=== PATIENT | female | born 1985 | race Caucasian/White ===

== ENCOUNTER 2017-02-15 08:58 | Emergency (ER) | payer MEDICAID ==
--- NOTE | 2017-02-15 09:55 | ED Physician Documentation ---
PD HPI HEADACHE - Stated complaint Stated Complaint: WAGONER/DIZZY - Chief complaint Chief Complaint: General - History obtained from History obtained from: Patient, Family - History of Present Illness Timing - onset: How many months ago (08 27/2) Timing - onset during: Rest Timing - duration: Hours Timing - details: Gradual onset, Now resolved, Waxing and waning Location: Right Quality: Throbbing Associated symptoms: Nausea. No: Fever, Stiff neck, Vomiting, Weakness, Numbness, Syncope, Seizure, Eye pain, Vision changes Improved by: Rest Contributing factors: No: Anticoagulated Similar symptoms before: Has not had sx before Recently seen: Other (The patient has had her teeth examined about a month ago with x-rays all are OK) - Additional information Additional information: 32 y/o female with a history of TMJ has developed a headache in the right temporal region that has been on and off for the past 1 1/2 months. She does not feel that she is clenching or grinding her teeth and she did have a tooth removed on the other side to resolve her TMJ. This morning she became concerned when she developed dizziness and light headedness while lying down with her eyes closed. Review of Systems Constitutional: denies: Fever, Chills, Myalgias, Fatigue Eyes: denies: Loss of vision, Decreased vision Ears: denies: Ear pain Nose: denies: Rhinorrhea / runny nose, Congestion Throat: denies: Sore throat Cardiac: denies: Chest pain / pressure, Palpitations Respiratory: denies: Dyspnea, Cough GI: reports: Nausea. denies: Abdominal Pain, Vomiting : denies: Dysuria, Frequency Skin: denies: Rash Musculoskeletal: denies: Neck pain, Back pain, Extremity pain Neurologic: reports: Headache, Other (dizziness lightheadedness). 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 - Present Medications Home Medications: Ambulatory Orders Medication Instructions Recorded Confirmed Cyclobenzaprine [Flexeril] 10 mg PO TID PRN #20 tablet 02/15/17 Etonogestrel/Ethinyl Estradiol 1 each VG DAILY 02/15/17 02/15/17 [Nuvaring Vaginal Ring] Meclizine HCl 25 mg PO Q6HR PRN #20 tab.chew 02/15/17 - Allergies Allergies/Adverse Reactions: Allergies Allergy/AdvReac Type Severity Reaction Status Date / Time No Known Drug Allergies Allergy Verified 02/15/17 09:09 - Social History Does the pt smoke?: No Smoking Status: Never smoker Does the pt drink ETOH?: No Does the pt have substance abuse?: Yes Substance Use and Type: Marijuana - Immunizations Immunizations are current?: Yes PD ED PE NORMAL - Vitals Vital signs reviewed: Yes (hypertension ) - General General: No acute distress, Well developed/nourished - HEENT HEENT: Atraumatic, PERRL, EOMI, Ears normal, Moist mucous membranes, Pharynx benign, Dentition benign, Other (There is a filling to the right lower molar and the tooth is not tender and there is no gum swelling. There are 3 beats of nystagmus to lateral view bilaterally ) - Neck Neck: Supple, no meningeal sign, No bony TTP - Cardiac Cardiac: RRR, No murmur - Respiratory Respiratory: No respiratory distress, Clear bilaterally - Abdomen Abdomen: Soft, Non tender - Back Back: No CVA TTP, No spinal TTP - Derm Derm: Normal color, Warm and dry, No rash - Extremities Extremities: No deformity, No edema - Neuro Neuro: backend java developer 2-12 intact, No motor deficit, No sensory deficit, Normal speech - Psych Psych: Normal mood, Normal affect Results - Vitals Vitals: Vital Signs - 24 hr 02/15/17 09:01 Temperature 36.7 C Heart Rate 87 Respiratory 16 Rate Blood Pressure 125/82 H O2 Saturation 100 Oxygen O2 Source Room air - Labs Labs: Laboratory Tests 02/15/17 02/15/17 10:52 10:52 WBC 6.1 RBC 4.66 Hgb 14.1 Hct 40.9 MCV 87.8 MCH 30.3 MCHC 34.5 RDW 12.5 Plt Count 175 MPV 7.7 L Neut # 4.8 Lymph # 1.0 L [place] # 0.2 Eos # 0.0 Baso # 0.0 Absolute Nucleated RBC 0.00 Nucleated RBCs 0.0 Sodium 139 Potassium 3.5 Chloride 105 Carbon Dioxide 24 Anion Gap 10.0 BUN 9 Creatinine 0.9 Estimated GFR (MDRD) 73 L Glucose 105 H Calcium 8.9 Total Bilirubin 0.3 AST 17 ALT 16 Alkaline Phosphatase 36 L Total Protein 7.4 Albumin 4.3 Globulin 3.1 Albumin/Globulin Ratio 1.4 Lipase 32 Procedures - IVC sono (time) 0915 Bedside IVC sono: IVC measures (cm) (1.97), Euvolemia PD MEDICAL DECISION MAKING - ED course Complexity details: reviewed old records, reviewed results, re-evaluated patient , considered differential, d/w patient, d/w family ED course: 32 y/o female with a daily intermittent headache has developed acute dizziness and nausea with anxiety this morning. A CT of the head is without findings as is physical examination. She does have a lot of stress and has a prior history of grinding her teeth without knowing it. She has some nystagmus bilaterally this morning and I suspect this is the reason she ended up here this morning as she has dramatic dizziness that is now mostly better. She has anxiety and is reassured by CT and blood work. Departure - Departure Disposition: 01 Home, Self Care Clinical Impression: Tension headache Labyrinthitis, acute Qualifiers: Laterality: bilateral Qualified Code(s): H83.03 - Labyrinthitis, bilateral Condition: Stable Instructions: ED Labyrinthitis, ED Headache Tension Follow-Up: Kimberly Lynne MD [Primary Care Provider] - Prescriptions: Meclizine HCl 25 mg PO Q6HR PRN #20 tab.chew PRN Reason: Dizziness Cyclobenzaprine [Flexeril] 10 mg PO TID PRN #20 tablet PRN Reason: Spasms
--- NOTE | 2017-02-15 10:11 | CT Preliminary Report ---
Exam: CT Head W/O IMPRESSION: Normal head CT. [facility] SITE ID: [id number]
--- NOTE | 2017-02-15 10:14 | CT Report ---
EXAM: CT HEAD EXAM DATE: 02/15/2017 09:59 AM. CLINICAL HISTORY: Report of 6 weeks on right side headache, no known injury. COMPARISON: None. TECHNIQUE: Multiaxial CT images were obtained from the foramen magnum to the vertex. IV contrast: Non e. Reformats: Coronal. In accordance with CT protocol optimization, one or more of the following dose reduction techniques w ere utilized for this exam: automated exposure control, adjustment of mA and/or KV based on patient s ize, or use of iterative reconstructive technique. FINDINGS: Parenchyma: No intraparenchymal hemorrhage. No evidence of mass, midline shift, or CT findings of inf arction. Bradshaw-white differentiation is distinct. Extraaxial Spaces: Normal for age. No subdural or epidural collections identified. Ventricles: Normal in size and position. Sinuses: Imaged paranasal sinuses, orbits, and mastoids show no significant abnormality. Bones: No evidence of fracture or calvarial defect. Other: None. IMPRESSION: Normal head CT. [facility] Referring Provider Line: [phone] SITE ID: [id number]
[2017-02-15 10:56] LABS: BASOPHILS % (AUTO) 0.4 %; EOSINOPHILS % (AUTO) 0.3 %; HCT - HEMATOCRIT 40.9 % (37.0-47.0); HGB - HEMOGLOBIN 14.1 g/dL (12.0-16.0); LYMPHOCYTES % (AUTO) 15.7 %; MEAN CORPUSCULAR HEMOGLOBIN 30.3 pg (27.0-31.0); MEAN CORPUSCULAR HGB CONC 34.5 g/dL (32.0-36.0); MEAN CORPUSCULAR VOLUME 87.8 fL (81.0-99.0); MEAN PLATELET VOLUME 7.7 fL (7.9-10.8); MONOCYTES # (AUTO) 0.2 10^3/uL (0.0-1.0); MONOCYTES % (AUTO) 4.1 %; NEUTROPHILS # (AUTO) 4.8 10^3/uL (1.5-6.6); NEUTROPHILS % (AUTO) 79.5 %; RED BLOOD COUNT 4.66 10^6/uL (4.20-5.40); RED CELL DISTRIBUTION WIDTH 12.5 % (12.0-15.0); UNCORRECTED WHITE BLOOD COUNT 6.1 x10^3/uL; WHITE BLOOD COUNT 6.1 x10^3/uL (4.8-10.8)
[2017-02-15] MEDS ORDERED: ACETAMINOPHEN 325 MG TABLET PO STA (11:08)
[2017-02-15 11:09] LABS: ALBUMIN/GLOBULIN RATIO 1.4 (1.0-2.2); BILIRUBIN,TOTAL 0.3 mg/dL (0.2-1.0); CALCIUM 8.9 mg/dL (8.5-10.3); CREATININE 0.9 mg/dL (0.4-1.0); POTASSIUM 3.5 mmol/L (3.5-5.0); TOTAL PROTEIN 7.4 g/dL (6.7-8.2)
[2017-02-15] MEDS ORDERED: ACETAMINOPHEN 325 MG TABLET PO ONE (11:12)
[2017-02-15 11:37] VITALS: BP 120/79
== END 2017-02-15 11:45 | disposition home or self-care (01) ==
LOC: ED 08:58
DX: G44.209 Tension-type headache, unspecified, not intractable (principal); H83.03 Labyrinthitis, bilateral
CPT/HCPCS: 36415; 70450; 80053; 83690; 85025; 99283; 99284; A9270

== ENCOUNTER 2018-07-28 09:09 | Emergency (ER) | payer MEDICAID ==
[2018-07-28 09:25] VITALS: BP 130/84
[2018-07-28] MEDS ORDERED: NAPROXEN 250 MG TABLET PO STA (09:39)
[2018-07-28] MEDS ORDERED: AMOX/CLAV 875 MG/125 MG TABLET PO STA (09:39)
--- NOTE | 2018-07-28 09:41 | ED Physician Documentation ---
History of Present Illness - Stated complaint Stated Complaint: SORE THROAT - Chief complaint Chief Complaint: General - Additonal information Additional information: 33-year-old female presents the emergency department with sore throat and pain with swallowing for the past several days. No reports of fever. The patient denies any other significant symptoms. Symptoms are described as moderate. No triggering factors. No relief with [id number]-[id number] therapy. 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 - Present Medications Home Medications: Ambulatory Orders Medication Instructions Recorded Confirmed Acetaminophen [Tylenol Extra 07/28/18 Strength] Amox/Clav 875/125 [Augmentin] 1 each PO Q12H #20 tablet 07/28/18 - Allergies Allergies/Adverse Reactions: Allergies Allergy/AdvReac Type Severity Reaction Status Date / Time adhesive tape AdvReac Rash Verified 07/28/18 09:26 - Social History Does the pt smoke?: No Smoking Status: Never smoker Does the pt drink ETOH?: No Does the pt have substance abuse?: Yes - Immunizations Immunizations are current?: Yes PD ED PE NORMAL - General General: Alert and oriented X 3, No acute distress - Cardiac Cardiac: RRR, Strong equal pulses - Respiratory Respiratory: No respiratory distress, Clear bilaterally - Extremities Extremities: No deformity - Neuro Neuro: Alert and oriented X 3, Normal speech - Psych Psych: Normal mood PD ED PE EXPANDED - HEENT HEENT: PERRL, EOMI, Ears normal, Moist mucous membranes, Pharyngeal erythema, Swollen tonsils, Tonsillar exudate, Dentition normal. No: R TM red, R TM dull, R TM bulging, R TM retracted, R TM loss of landmarks, L TM red, L TM dull, L TM bulging, L TM retracted, L TM loss of landmarks, Right frontal sinus TTP, Left frontal sinus TTP, Right maxillary sinus TTP, Left maxillary sinus TTP, Soft palate petecchiae, CHIEF MEDIA OFFICER, Dental abscess Results - Vitals Vitals: Vital Signs - 24 hr 07/28/18 09:22 Temperature 36.8 C Heart Rate 93 Respiratory 16 Rate Blood Pressure 130/84 H O2 Saturation 100 Oxygen O2 Source Room air - Labs Labs: Laboratory Tests 07/28/18 09:32 Group A Strep Rapid POSITIVE H PD MEDICAL DECISION MAKING - ED course ED course: The patient has strep pharyngitis and appears appropriate for outpatient management with oral antibiotics. I discussed the findings and plan with the patient she understands and agrees. I discussed warning signs and recommended returning to the emergency department for worsening or any concerns. Departure - Departure Disposition: 01 Home, Self Care Clinical Impression: Strep pharyngitis Condition: Good Instructions: ED Strep Pharyngitis Conf Follow-Up: Josee Henderson ARNP [Primary Care Provider] - Within 1 week Prescriptions: Amox/Clav 875/125 [Augmentin] 1 each PO Q12H #20 tablet Comments: Please return to the emergency department for worsening symptoms or any concerns.
== END 2018-07-28 09:49 | disposition home or self-care (01) ==
LOC: ED 09:09
DX: J02.0 Streptococcal pharyngitis (principal)
CPT/HCPCS: 87430; 99283; A9270

== ENCOUNTER 2018-09-29 12:58 | Outpatient (CLI) | payer MEDICAID ==
--- NOTE | 2018-09-30 02:58 | Ultrasound Report ---
Reason: TEST POSITIVE Procedure Date: 09/29/2018 Accession Number: [id number] / [id number] Procedure: US - OB First Trimester CPT Code: FULL RESULT: EXAM: FIRST TRIMESTER OBSTETRIC ULTRASOUND (Less than 11 weeks) EXAM DATE: 09/29/2018 01:07 PM. CLINICAL HISTORY: test positive. LMP: 08/12/2018, 6 weeks 6 days. COMPARISONS: None. TECHNIQUE: Transabdominal and transvaginal ultrasound examination with static image documentation. FINDINGS: Gestational Sac: An intrauterine fluid-filled sac contains both an embryo and yolk sac. Tiny sorin-gestational bleed. Embryo: CRL (crown-rump length) measures 3 mm corresponding to an estimated gestational age of 6 weeks 0 days. Heart Rate: 114 beats per minute. Placenta: Not visible at this gestational age. Amniotic fluid: Not accurately assessed at this gestational age. Uterus: Unremarkable anteverted appearance. Cervix: Closed. Right Ovary: Volume 12 cc. Normal echotexture and blood flow. Left Ovary: Volume 4 cc. Normal echotexture and blood flow. Free Fluid: Trace. Other: None. IMPRESSION: Single live intrauterine at 6 weeks 0 days by crown-rump length -- for an estimated delivery date of 05/25/2019. [facility]
== END 2018-09-29 12:59 | disposition home or self-care (01) ==
LOC: DI 12:58
PROVIDERS: ATTEND Registered Nurse
DX: Z32.01 Encounter for pregnancy test, result positive (principal); Z3A.01 Less than 8 weeks gestation of pregnancy
CPT/HCPCS: 76801

== ENCOUNTER 2018-10-20 16:57 | Emergency (ER) | payer MEDICAID ==
[2018-10-20 17:38] LABS: BASOPHILS # (AUTO) 0.1 10^3/uL (0.0-0.1); BASOPHILS % (AUTO) 0.8 %; EOSINOPHILS # (AUTO) 0.1 10^3/uL (0.0-0.7); EOSINOPHILS % (AUTO) 0.8 %; LYMPHOCYTES # (AUTO) 1.9 10^3/uL (1.5-3.5); LYMPHOCYTES % (AUTO) 25.1 %; MEAN CORPUSCULAR HEMOGLOBIN 31.5 pg (27.0-31.0); MEAN CORPUSCULAR HGB CONC 34.1 g/dL (32.0-36.0); MEAN CORPUSCULAR VOLUME 92.3 fL (81.0-99.0); MONOCYTES # (AUTO) 0.4 10^3/uL (0.0-1.0); MONOCYTES % (AUTO) 5.6 %; NEUTROPHILS # (AUTO) 5.1 10^3/uL (1.5-6.6); NEUTROPHILS % (AUTO) 67.7 %; PLT - PLATELET COUNT 216 10^3/uL (130-450); RED BLOOD COUNT 4.44 10^6/uL (4.20-5.40); RED CELL DISTRIBUTION WIDTH 13.3 % (12.0-15.0); WHITE BLOOD COUNT 7.5 x10^3/uL (4.8-10.8)
[2018-10-20 17:50] LABS: ALBUMIN 4.4 g/dL (3.2-5.5); ALBUMIN/GLOBULIN RATIO 1.3 (1.0-2.2); BILIRUBIN,TOTAL 0.5 mg/dL (0.2-1.0); CALCIUM 9.1 mg/dL (8.5-10.3); CREATININE 0.7 mg/dL (0.4-1.0); TOTAL PROTEIN 7.7 g/dL (6.7-8.2)
--- NOTE | 2018-10-20 18:40 | Ultrasound Report ---
Reason: VAginal bleeding, already had pos US Procedure Date: 10/20/2018 Accession Number: [id number] / [id number] Procedure: US - OB First Trimester CPT Code: FULL RESULT: EXAM: FIRST TRIMESTER OBSTETRIC ULTRASOUND (Less than 11 weeks) EXAM DATE: 10/20/2018 05:36 PM. CLINICAL HISTORY: VAginal bleeding. LMP: 08/12/2018. COMPARISONS: OB FIRST TRIMESTER 09/29/2018 1:07 PM. TECHNIQUE: Transabdominal and transvaginal ultrasound examination with static image documentation. CLINICAL DATES: EGA 9 weeks 6 days with EDIE 05/19/2019 based on LMP. ASSESSMENT: Gestational Sac: Single intrauterine. Mean gestational sac diameter: 17.6 mm = 6 weeks 1 day. Embryo: CRL (crown-rump length) 13.5 mm = 7 weeks 4 days. Cardiac activity: 0 beats per minute. Yolk sac: None visualized. Amniotic fluid: Not accurately assessed at this gestational age. Early placenta: Not visible at this gestational age. Other: No perigestational fluid collection demonstrated. MATERNAL STRUCTURES: Uterus: Anteverted. Unremarkable. Cervix: Closed. Right Ovary/Adnexa: The ovary measures 3.5 x 2.1 x 3.2 cm, volume 12.3 cc. Unremarkable. Left Ovary/Adnexa: The ovary measures 3.0 x 1.6 x 2.0 cm, volume 5.0 cc. Unremarkable. Free Fluid: None. Other: None. IMPRESSION: 1. Single intrauterine at EGA 7 weeks 4 days with EDIE 06/04/2019 based on crown-rump length, which is discordant with clinical dates. 2. demise, with no heartbeat noted and abnormal growth since prior exam. [facility]
[2018-10-20 18:54] LABS: BILIRUBIN,URINE NEGATIVE (NEGATIVE); GLUCOSE, URINE (UA) NEGATIVE (NEGATIVE); KETONES,URINE (UA) NEGATIVE (NEGATIVE); LEUKOCYTE ESTERASE, URINE NEGATIVE (NEGATIVE); NITRITE,URINE NEGATIVE (NEGATIVE); OCCULT BLOOD,URINE MODERATE (NEGATIVE); PH,URINE 7.5 PH (5.0-7.5); PROTEIN,URINE NEGATIVE (NEGATIVE); UROBILINOGEN,URINE 0.2 (NORMAL) E.U./dL (NORMAL)
[2018-10-20 18:56] LABS: CLARITY,URINE HAZY (CLEAR)
--- NOTE | 2018-10-20 19:02 | ED Physician Documentation ---
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), Miscarriage(s) Review of Systems Constitutional: reports: Reviewed and negative Eyes: reports: Reviewed and negative Ears: reports: Reviewed and negative Nose: reports: Reviewed and negative Throat: reports: Reviewed and negative Cardiac: reports: Reviewed and negative Respiratory: reports: Reviewed and negative GI: reports: Reviewed and negative : reports: Vaginal bleeding Skin: reports: Reviewed and negative Musculoskeletal: reports: Reviewed and negative Neurologic: reports: Reviewed and negative Psychiatric: reports: Reviewed and negative Endocrine: reports: Reviewed and negative Immunocompromised: reports: Reviewed and negative PD PAST MEDICAL HISTORY - Past Medical History Past Medical History: Yes GI: C.difficile HEENT: Other Psych: Anxiety - Past Surgical History 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 - Present Medications Home Medications: Ambulatory Orders Medication Instructions Recorded Confirmed Pnv95/Ferrous Fumarate/FA 1 tab PO DAILY 10/20/18 10/20/18 [ Tablet] - Allergies Allergies/Adverse Reactions: Allergies Allergy/AdvReac Type Severity Reaction Status Date / Time adhesive tape AdvReac Rash Verified 10/20/18 17:06 - Social History Does the pt smoke?: No Smoking Status: Never smoker Does the pt drink ETOH?: No Does the pt have substance abuse?: No - Immunizations Immunizations are current?: Yes - POLST Patient has POLST: No PD ED PE NORMAL - Vitals Vital signs reviewed: Yes - General General: Alert and oriented X 3, No acute distress - HEENT HEENT: PERRL - Neck Neck: Supple, no meningeal sign - Cardiac Cardiac: RRR, No murmur - Respiratory Respiratory: Clear bilaterally - Abdomen Abdomen: Normal bowel sounds, Soft, Non tender, Non distended - Derm Derm: Warm and dry - Extremities Extremities: No deformity - Neuro Neuro: Alert and oriented X 3 - Psych Psych: Normal mood, Normal affect Results - Vitals Vitals: Vital Signs - 24 hr 10/20/18 17:00 Temperature 36 C L Heart Rate 107 H Respiratory 20 Rate Blood Pressure 150/91 H O2 Saturation 100 Oxygen O2 Source Room air - Labs Labs: Laboratory Tests 10/20/18 10/20/18 10/20/18 17:25 17:25 17:25 WBC 7.5 RBC 4.44 Hgb 14.0 Hct 41.0 MCV 92.3 MCH 31.5 H MCHC 34.1 RDW 13.3 Plt Count 216 MPV 8.0 Neut # (Auto) 5.1 Lymph # (Auto) 1.9 [place] # (Auto) 0.4 Eos # (Auto) 0.1 Baso # (Auto) 0.1 Absolute Nucleated RBC 0.00 Nucleated RBC % 0.0 Sodium 140 Potassium 3.6 Chloride 107 Carbon Dioxide 25 Anion Gap 8.0 BUN 11 Creatinine 0.7 Estimated GFR (MDRD) 97 Glucose 108 H Calcium 9.1 Total Bilirubin 0.5 AST 19 ALT 18 Alkaline Phosphatase 47 Total Protein 7.7 Albumin 4.4 Globulin 3.3 Albumin/Globulin Ratio 1.3 Lipase 42 HCG, Quant 2184.00 Urine Color Urine Clarity Urine pH Ur Specific [place] Urine Protein Urine Glucose (UA) Urine Ketones Urine Occult Blood Urine Nitrite Urine Bilirubin Urine Urobilinogen Ur Leukocyte Esterase Ur Microscopic Review Urine Culture Comments 10/20/18 18:30 WBC RBC Hgb Hct MCV MCH MCHC RDW Plt Count MPV Neut # (Auto) Lymph # (Auto) [place] # (Auto) Eos # (Auto) Baso # (Auto) Absolute Nucleated RBC Nucleated RBC % Sodium Potassium Chloride Carbon Dioxide Anion Gap BUN Creatinine Estimated GFR (MDRD) Glucose Calcium Total Bilirubin AST ALT Alkaline Phosphatase Total Protein Albumin Globulin Albumin/Globulin Ratio Lipase HCG, Quant Urine Color YELLOW Urine Clarity HAZY Urine pH 7.5 Ur Specific [place] 1.015 Urine Protein NEGATIVE Urine Glucose (UA) NEGATIVE Urine Ketones NEGATIVE Urine Occult Blood MODERATE H Urine Nitrite NEGATIVE Urine Bilirubin NEGATIVE Urine Urobilinogen 0.2 (NORMAL) Ur Leukocyte Esterase NEGATIVE Ur Microscopic Review INDICATED Urine Culture Comments Not Reportable PD MEDICAL DECISION MAKING - ED course Complexity details: reviewed results, re-evaluated patient, considered differential, d/w patient, d/w family ED course: 33-year-old weeks female presents with vaginal bleeding. Ultrasound consistent with demise. Patient given return precautions and will follow-up with OB. Departure - Departure Disposition: Home, Self Care Clinical Impression: Inevitable complete miscarriage without complication Condition: Stable Instructions: Miscarriage Dc, ED Miscarriage Incom Follow-Up: Your, OB [Other] Comments: It was a pleasure caring for you today. I'm so sorry for your loss. Please return with any concerns. Follow up with your OB as scheduled. Sincerely, Dr. Hilliard.
[2018-10-20 19:03] LABS: AMORPHOUS SEDIMENT,UR Moderate /LPF; BACTERIA,URINE None Seen /HPF (None Seen); RBC,URINE 0-5 /HPF (0-5); SQUAMOUS EPITHELIAL CELL,UR FEW Squamous (<= Few)
[2018-10-20 19:32] VITALS: BP 133/90
== END 2018-10-20 19:32 | disposition home or self-care (01) ==
LOC: ED 16:57
DX: O03.9 Complete or unspecified spontaneous abortion without complication (principal)
CPT/HCPCS: 36415; 76801; 76817; 80053; 81001; 81003; 83690; 84702; 85025; 86850; 86900; 86901; 87086; 99283

== ENCOUNTER 2019-03-13 16:55 | Emergency (ER) | payer MEDICAID ==
[2019-03-13] MEDS ORDERED: SODIUM CHLORIDE 0.9% 1,000 ML IV ONE (18:03)
[2019-03-13] MEDS ORDERED: METOCLOPRAMIDE 10 MG/2 ML VIAL IVP STA (18:03)
--- NOTE | 2019-03-13 18:06 | ED Physician Documentation ---
History of Present Illness - Stated complaint Stated Complaint: NAUSEA/7 WKS - Chief complaint Chief Complaint: Abd Pain - History obtained from History obtained from: Patient, Family - History of Present Illness Pain level max: 0 Pain level now: 0 - Additonal information Additional information: 34-year-old female, 5 para 2 presents to the emergency department with nausea and vomiting for the past week or so. States that she feels dehydrated. Lightheaded when standing. Took Zofran without relief. No vaginal bleeding or cramping. No lower abdominal pain. Did have slight right-sided back pain last night but this is since resolved. Worse with eating, nothing makes it better Review of Systems Constitutional: denies: Fever, Chills Nose: denies: Rhinorrhea / runny nose, Congestion Throat: denies: Sore throat Cardiac: denies: Chest pain / pressure Respiratory: denies: Cough GI: reports: Nausea, Vomiting. denies: Abdominal Pain, Diarrhea, Hematemesis, Bloody / black stool : reports: Now EGA (7weeks EGA). 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 - Present Medications Home Medications: Ambulatory Orders Medication Instructions Recorded Confirmed Pnv95/Ferrous Fumarate/FA 1 tab PO DAILY 10/20/18 10/20/18 [ Tablet] Metoclopramide [Reglan] 10 mg PO Q6H PRN #10 tablet 03/13/19 - Allergies Allergies/Adverse Reactions: Allergies Allergy/AdvReac Type Severity Reaction Status Date / Time adhesive tape AdvReac Rash Verified 10/20/18 17:06 - Living Situation Living Situation: reports: With family Living Arrangement: reports: At home - Social History Does the pt smoke?: No Smoking Status: Never smoker Does the pt drink ETOH?: No Does the pt have substance abuse?: No - Immunizations Immunizations are current?: Yes - POLST Patient has POLST: No PD ED PE NORMAL - Vitals Vital signs reviewed: Yes - General General: Alert and oriented X 3, No acute distress, Well developed/nourished - HEENT HEENT: PERRL, Other (dry lips) - Neck Neck: Supple, no meningeal sign - Cardiac Cardiac: RRR, Strong equal pulses - Respiratory Respiratory: No respiratory distress, Clear bilaterally - Abdomen Abdomen: Normal bowel sounds, Soft, Non tender, Non distended - Back Back: No CVA TTP, No spinal TTP - Derm Derm: Warm and dry, No rash - Extremities Extremities: No edema - Neuro Neuro: Alert and oriented X 3 - Psych Psych: Normal mood, Normal affect Results - Vitals Vitals: Vital Signs - 24 hr 03/13/19 03/13/19 03/13/19 17:07 19:20 20:06 Temperature 36.9 C Heart Rate 89 99 70 Respiratory 18 16 16 Rate Blood Pressure 144/70 H 106/62 117/65 O2 Saturation 100 99 99 Oxygen O2 Source Room air - Labs Labs: Laboratory Tests 03/13/19 03/13/19 03/13/19 18:46 18:46 19:20 WBC 8.9 RBC 4.41 Hgb 13.7 Hct 39.9 MCV 90.5 MCH 31.1 H MCHC 34.3 RDW 12.1 Plt Count 202 MPV 10.2 Neut # (Auto) 6.7 H Lymph # (Auto) 1.5 [place] # (Auto) 0.5 Eos # (Auto) 0.1 Baso # (Auto) 0.0 Absolute Nucleated RBC 0.00 Nucleated RBC % 0.0 Sodium 136 Potassium 3.5 Chloride 103 Carbon Dioxide 23 Anion Gap 10.0 BUN 9 Creatinine 0.8 Estimated GFR (MDRD) 83 L Glucose 94 Calcium 9.1 Total Bilirubin 0.4 AST 16 ALT 14 Alkaline Phosphatase 40 L Total Protein 7.1 Albumin 4.2 Globulin 2.9 Albumin/Globulin Ratio 1.4 Lipase 37 Urine Color YELLOW Urine Clarity CLEAR Urine pH 6.5 Ur Specific [place] <=1.005 Urine Protein NEGATIVE Urine Glucose (UA) NEGATIVE Urine Ketones TRACE Urine Occult Blood NEGATIVE Urine Nitrite NEGATIVE Urine Bilirubin NEGATIVE Urine Urobilinogen 0.2 (NORMAL) Ur Leukocyte Esterase NEGATIVE Ur Microscopic Review NOT INDICATED Urine Culture Comments NOT INDICATED PD MEDICAL DECISION MAKING - ED course Complexity details: reviewed results, re-evaluated patient, considered differential, d/w patient, d/w family ED course: Patient feels better after IV fluids and Reglan. Tolerating p.o. without difficulty. Abdomen is soft, nontender nondistended. No vaginal bleeding. We will follow-up with her automatic pilot mechanic for further care. Patient counseled regarding signs and symptoms for which I believe and urgent re-evaluation would be necessary. Patient with good understanding of and agreement to plan and is comfortable going home at this time This document was made in part using voice recognition software. While efforts are made to proofread this document, sound alike and grammatical errors may occur. Departure - Departure Disposition: 01 Home, Self Care Clinical Impression: Dehydration Vomiting Qualifiers: Vomiting type: unspecified Vomiting Intractability: non-intractable Nausea presence: with nausea Qualified Code(s): R11.2 - Nausea with vomiting, unspecified Qualifiers: Weeks of gestation: less than 8 weeks Qualified Code(s): Z3A.01 - Less than 8 weeks gestation of Condition: Good Instructions: ED Dehydration, ED Preg Morning Sickness Follow-Up: Jessica Méndez PA [Primary Care Provider] - Within 1 week Prescriptions: Metoclopramide [Reglan] 10 mg PO Q6H PRN #10 tablet PRN Reason: Nausea / Vomiting Comments: Use the Reglan as needed. Drink plenty fluids. Follow-up with your doctor for further care. Discharge Date/Time: 03/13/19 20:07
[2019-03-13 18:57] LABS: BASOPHILS % (AUTO) 0.5 %; EOSINOPHILS # (AUTO) 0.1 10^3/uL (0.0-0.7); EOSINOPHILS % (AUTO) 0.6 %; HGB - HEMOGLOBIN 13.7 g/dL (12.0-16.0); LYMPHOCYTES # (AUTO) 1.5 10^3/uL (1.5-3.5); LYMPHOCYTES % (AUTO) 17.1 %; MEAN CORPUSCULAR HEMOGLOBIN 31.1 pg (27.0-31.0); MEAN CORPUSCULAR HGB CONC 34.3 g/dL (32.0-36.0); MEAN CORPUSCULAR VOLUME 90.5 fL (81.0-99.0); MEAN PLATELET VOLUME 10.2 fL (7.9-10.8); MONOCYTES # (AUTO) 0.5 10^3/uL (0.0-1.0); MONOCYTES % (AUTO) 5.9 %; NEUTROPHILS # (AUTO) 6.7 10^3/uL (1.5-6.6); NEUTROPHILS % (AUTO) 75.4 %; PLT - PLATELET COUNT 202 10^3/uL (130-450); RED BLOOD COUNT 4.41 10^6/uL (4.20-5.40); RED CELL DISTRIBUTION WIDTH 12.1 % (12.0-15.0); WHITE BLOOD COUNT 8.9 x10^3/uL (4.8-10.8)
[2019-03-13 19:10] LABS: ALBUMIN 4.2 g/dL (3.2-5.5); ALBUMIN/GLOBULIN RATIO 1.4 (1.0-2.2); BILIRUBIN,TOTAL 0.4 mg/dL (0.2-1.0); CALCIUM 9.1 mg/dL (8.5-10.3); CREATININE 0.8 mg/dL (0.4-1.0); TOTAL PROTEIN 7.1 g/dL (6.7-8.2)
[2019-03-13 19:39] LABS: BILIRUBIN,URINE NEGATIVE (NEGATIVE); GLUCOSE, URINE (UA) NEGATIVE (NEGATIVE); KETONES,URINE (UA) TRACE mg/dL (NEGATIVE); LEUKOCYTE ESTERASE, URINE NEGATIVE (NEGATIVE); NITRITE,URINE NEGATIVE (NEGATIVE); OCCULT BLOOD,URINE NEGATIVE (NEGATIVE); PH,URINE 6.5 PH (5.0-7.5); PROTEIN,URINE NEGATIVE (NEGATIVE); UROBILINOGEN,URINE 0.2 (NORMAL) E.U./dL (NORMAL)
[2019-03-13 19:53] LABS: CLARITY,URINE CLEAR (CLEAR)
[2019-03-13 20:07] VITALS: BP 117/65
== END 2019-03-13 20:07 | disposition home or self-care (01) ==
LOC: ED 16:55
DX: O21.9 Vomiting of pregnancy, unspecified (principal); O99.89 Other specified diseases and conditions complicating pregnancy, childbirth and the puerperium; E86.0 Dehydration; Z3A.01 Less than 8 weeks gestation of pregnancy
CPT/HCPCS: 80053; 81003; 83690; 85025; 96361; 96374; 99283; 99284; J2765; 36415; 81001; 87086

== ENCOUNTER 2019-03-14 11:18 | Outpatient (CLI) | payer MEDICAID ==
--- NOTE | 2019-03-14 15:35 | Ultrasound Report ---
Reason: TEST POSITIVE Procedure Date: 03/14/2019 Accession Number: [id number] / [id number] Procedure: US - OB First Trimester CPT Code: FULL RESULT: EXAM: FIRST TRIMESTER OBSTETRIC ULTRASOUND (Less than 11 weeks) EXAM DATE: 03/14/2019 12:15 PM. CLINICAL HISTORY: test positive. LMP: 01/22/2019. COMPARISONS: OB FIRST TRIMESTER 10/20/2018 5:36 PM. TECHNIQUE: Transabdominal ultrasound examination with static image documentation. CLINICAL DATES: EGA 7 weeks 2 days with EDIE 10/29/2019 based on LMP. ASSESSMENT: Gestational Sac: Single intrauterine. Mean gestational sac diameter: 2.4 mm = 7 weeks 3 days. Embryo: CRL (crown-rump length) 8 mm = 6 weeks 5 days. Cardiac activity: 137 beats per minute. Yolk sac: 3 mm. Amniotic fluid: Not accurately assessed at this gestational age. Early placenta: Not visible at this gestational age. Other: No perigestational fluid collection demonstrated. MATERNAL STRUCTURES: Uterus: Anteverted. Unremarkable. Cervix: Closed. Right Ovary/Adnexa: The ovary measures 3.9 x 2.4 x 3.3 cm, volume 16.3 cc. Corpus luteum noted, 2.2 x 1.7 x 2.8 cm. Left Ovary/Adnexa: The ovary measures 2.9 x 2.2 x 2.7 cm, volume 8.8 cc. Unremarkable. Free Fluid: None. Other: None. IMPRESSION: 1. Single viable intrauterine at EGA 6 weeks 5 days with EDIE 11/02/2019 based on crown-rump length, which is concordant with LMP. 2. Assigned dating is EDIE 09/30/2019 based on LMP. HARDEEP
== END 2019-03-14 11:19 | disposition home or self-care (01) ==
LOC: DI 11:18
PROVIDERS: ATTEND Obstetrics & Gynecology
DX: Z32.01 Encounter for pregnancy test, result positive (principal)
CPT/HCPCS: 76801

== ENCOUNTER 2019-03-25 13:37 | Outpatient (CLI) | payer MEDICAID ==
[2019-03-25 14:59] LABS: MUDS CUTOFF CONCENTRATIONS CUTOFF CONC BELOW:
[2019-03-25 15:03] LABS: BILIRUBIN,URINE NEGATIVE (NEGATIVE); GLUCOSE, URINE (UA) NEGATIVE (NEGATIVE); KETONES,URINE (UA) TRACE mg/dL (NEGATIVE); LEUKOCYTE ESTERASE, URINE NEGATIVE (NEGATIVE); NITRITE,URINE NEGATIVE (NEGATIVE); OCCULT BLOOD,URINE NEGATIVE (NEGATIVE); PH,URINE 6.5 PH (5.0-7.5); PROTEIN,URINE NEGATIVE (NEGATIVE); UROBILINOGEN,URINE 0.2 (NORMAL) E.U./dL (NORMAL)
[2019-03-25 15:13] LABS: BACTERIA,URINE Many /HPF (None Seen); CLARITY,URINE CLEAR (CLEAR); RBC,URINE None Seen /HPF (0-5); SQUAMOUS EPITHELIAL CELL,UR MANY Squamous (<= Few)
[2019-03-25 15:14] LABS: AMPHETAMINE SCREEN,URINE NEGATIVE (NEGATIVE); BENZODIAZEPINES SCREEN, URINE NEGATIVE (NEGATIVE); COCAINE SCREEN URINE NEGATIVE (NEGATIVE); METHADONE SCREEN, URINE NEGATIVE (NEGATIVE); METHAMPHETAMINES SCREEN, URINE NEGATIVE (NEGATIVE); OPIATE SCREEN, URINE NEGATIVE (NEGATIVE); OXYCODONE SCREEN, URINE NEGATIVE (NEGATIVE); PROPOXYPHENE SCREEN, URINE NEGATIVE (NEGATIVE); TRICYCLIC ANTIDEPRESSANT,URINE NEGATIVE (NEGATIVE)
== END 2019-03-25 23:59 | disposition home or self-care (01) ==
LOC: LAB.R 13:37
PROVIDERS: ATTEND Nurse Practitioner Obstetrics & Gynecology
DX: Z36.89 Encounter for other specified antenatal screening (principal)
CPT/HCPCS: 80306; 81001; 87086

== ENCOUNTER 2019-03-31 14:45 | Outpatient (CLI) | payer MEDICAID ==
[2019-03-31 15:11] LABS: BASOPHILS % (AUTO) 0.5 %; EOSINOPHILS # (AUTO) 0.1 10^3/uL (0.0-0.7); EOSINOPHILS % (AUTO) 0.6 %; HGB - HEMOGLOBIN 13.2 g/dL (12.0-16.0); LYMPHOCYTES # (AUTO) 1.7 10^3/uL (1.5-3.5); LYMPHOCYTES % (AUTO) 20.6 %; MEAN CORPUSCULAR HGB CONC 34.5 g/dL (32.0-36.0); MEAN CORPUSCULAR VOLUME 89.9 fL (81.0-99.0); MEAN PLATELET VOLUME 10.2 fL (7.9-10.8); MONOCYTES # (AUTO) 0.5 10^3/uL (0.0-1.0); MONOCYTES % (AUTO) 5.7 %; NEUTROPHILS # (AUTO) 5.8 10^3/uL (1.5-6.6); NEUTROPHILS % (AUTO) 72.2 %; PLT - PLATELET COUNT 201 10^3/uL (130-450); RED BLOOD COUNT 4.26 10^6/uL (4.20-5.40); RED CELL DISTRIBUTION WIDTH 11.9 % (12.0-15.0); WHITE BLOOD COUNT 8.1 x10^3/uL (4.8-10.8)
[2019-04-01 13:26] LABS: HIV AG/AB 4TH GEN NON-REACTIVE (NON-REACTIVE)
[2019-04-01 15:33] LABS: HEPATITIS B SURFACE ANTIGEN NON-REACTIVE (NON-REACTIVE)
[2019-04-01 15:34] LABS: HEPATITIS C ANTIBODY NON-REACTIVE (NON-REACTIVE)
== END 2019-03-31 14:46 | disposition home or self-care (01) ==
LOC: LAB 14:45
PROVIDERS: ATTEND Nurse Practitioner Obstetrics & Gynecology
DX: Z36.89 Encounter for other specified antenatal screening (principal)
CPT/HCPCS: 36415; 81599; 85025; 86592; 86762; 86803; 86850; 86900; 86901; 87340; 87389

== ENCOUNTER 2019-04-24 11:15 | Outpatient (CLI) | payer MEDICAID | END 2019-04-24 11:16 | disposition home or self-care (01) | LOC: LAB 11:15 | PROVIDERS: ATTEND Nurse Practitioner Obstetrics & Gynecology | DX: Z36.89 Encounter for other specified antenatal screening (principal) | CPT/HCPCS: 36415; 81599 ==

== ENCOUNTER 2019-05-29 12:12 | Outpatient (CLI) | payer MEDICAID ==
--- NOTE | 2019-05-29 15:14 | Ultrasound Report ---
Reason: ENCOUNTER FOR SCREENING Procedure Date: 05/29/2019 Accession Number: [id number] / [id number] Procedure: US - OB Detailed Eval CPT Code: FULL RESULT: EXAM: COMPLETE OBSTETRICAL ULTRASOUND EXAM DATE: 05/29/2019 02:24 PM. CLINICAL HISTORY: anatomic survey. COMPARISON: 03/14/2019. TECHNIQUE: Real-time sonographic evaluation of the fetus performed by the railcar foreman. Multiple outside sales representative static images were saved for review. Transabdominal imaging only. DATING: Established EGA 18 weeks 1 day with EDIE 10/29/2019 based on LMP. EGA 18 weeks 1 day with EDIE 10/29/2019 based on provider physician stated. EGA 17 weeks 5 days with EDIE 11/01/2019 based on the current ultrasound. GENERAL EVALUATION Florentino . Cardiac activity: 149 bpm. movement: Visualized. Presentation: Breech. Placenta: Anterior position. No evidence for previa. Umbilical cord: 3 vessel cord. Central placental cord origin. Amniotic fluid: Subjectively normal. MVP 4.2 cm. ERROL 10.0 cm. BIOMETRY Bi-Parietal Diameter (BPD): 3.7 cm, 17 weeks 2 days. Head Circumference (HC): 14.4 cm, 17 weeks 4 days. Abdominal Circumference (AC): 13.2 cm, 18 weeks 5 days. Femur Length (FL): 2.6 cm, 18 weeks 0 days. Estimated Weight: 231 g, 52.2 percentile for 18 weeks 1 day. ANATOMY The intracranial structures, profile, face/nose/lips, spine, 4 chamber heart and outflow tracts, stomach, abdominal wall and cord insertion, diaphragm, kidneys, bladder, and extremities were visualized and demonstrate no abnormality. MATERNAL STRUCTURES Uterus: Unremarkable. Cervix: Long and closed. Transabdominal length 4.0 cm. Right ovary/adnexa: Unremarkable. Left ovary/adnexa: Unremarkable. Free fluid: None. IMPRESSION: 1. Florentino live intrauterine with gestational age 17 weeks 5 days based on current ultrasound. 2. Estimated weight is within expected limits for assigned dating. 3. Normal anatomic survey. No anatomic abnormalities are detected at this time. RADIA
== END 2019-05-29 12:13 | disposition home or self-care (01) ==
LOC: DI 12:12
PROVIDERS: ATTEND Obstetrics & Gynecology
DX: Z36.89 Encounter for other specified antenatal screening (principal)
CPT/HCPCS: 76811

== ENCOUNTER 2019-06-05 11:27 | Outpatient (CLI) | payer MEDICAID | END 2019-06-05 11:28 | disposition home or self-care (01) | LOC: LAB 11:27 | PROVIDERS: ATTEND Obstetrics & Gynecology | DX: Z34.90 Encounter for supervision of normal pregnancy, unspecified, unspecified trimester (principal) | CPT/HCPCS: 36415; 81511; 81599 ==

== ENCOUNTER 2019-07-10 07:00 | Outpatient (CLI) | payer MEDICAID | END 2019-07-10 23:59 | disposition home or self-care (01) | LOC: LAB.R 07:00 | PROVIDERS: ATTEND Obstetrics & Gynecology | DX: R30.0 Dysuria (principal) | CPT/HCPCS: 87086 ==

== ENCOUNTER 2019-08-04 09:17 | Outpatient (CLI) | payer MEDICAID ==
[2019-08-04 10:55] LABS: HGB - HEMOGLOBIN 11.4 g/dL (12.0-16.0); MEAN CORPUSCULAR HEMOGLOBIN 31.5 pg (27.0-31.0); MEAN CORPUSCULAR HGB CONC 33.6 g/dL (32.0-36.0); MEAN CORPUSCULAR VOLUME 93.6 fL (81.0-99.0); MEAN PLATELET VOLUME 9.4 fL (7.9-10.8); RED BLOOD COUNT 3.62 10^6/uL (4.20-5.40); RED CELL DISTRIBUTION WIDTH 12.1 % (12.0-15.0); WHITE BLOOD COUNT 7.7 x10^3/uL (4.8-10.8)
== END 2019-08-04 09:18 | disposition home or self-care (01) ==
LOC: LAB 09:17
PROVIDERS: ATTEND Nurse Practitioner Obstetrics & Gynecology
DX: Z36.89 Encounter for other specified antenatal screening (principal)
CPT/HCPCS: 36415; 82950; 85027; 86850

== ENCOUNTER 2019-08-26 11:11 | Outpatient (CLI) | payer MEDICAID ==
[2019-08-26 11:39] LABS: RAPID STREP SCREEN Negative (Negative)
== END 2019-08-26 11:12 | disposition home or self-care (01) ==
LOC: LAB 11:11
PROVIDERS: ATTEND Obstetrics & Gynecology
DX: J02.9 Acute pharyngitis, unspecified (principal)
CPT/HCPCS: 87070; 87430

== ENCOUNTER 2019-10-01 08:00 | Outpatient (CLI) | payer MEDICAID ==
[2019-10-01 20:28] LABS: TRICHOMONAS VAGINALIS DNA NEGATIVE (NEGATIVE)
== END 2019-10-01 23:59 | disposition home or self-care (01) ==
LOC: LAB.R 08:00
PROVIDERS: ATTEND Nurse Practitioner Obstetrics & Gynecology
DX: Z36.85 Encounter for antenatal screening for Streptococcus B (principal); O99.89 Other specified diseases and conditions complicating pregnancy, childbirth and the puerperium; Z11.3 Encounter for screening for infections with a predominantly sexual mode of transmission; R30.0 Dysuria
CPT/HCPCS: 87086; 87491; 87591; 87661; 87797

== ENCOUNTER 2019-12-17 12:14 | Emergency (ER) | payer MEDICAID ==
[2019-12-17] MEDS ORDERED: KETOROLAC 30 MG/ML VIAL IVP STA ×2 (12:42→14:12)
[2019-12-17] MEDS ORDERED: METOCLOPRAMIDE 10 MG/2 ML VIAL IVP STA (12:45)
[2019-12-17 12:51] LABS: BASOPHILS % (AUTO) 0.7 %; EOSINOPHILS # (AUTO) 0.1 10^3/uL (0.0-0.7); EOSINOPHILS % (AUTO) 1.3 %; HGB - HEMOGLOBIN 13.1 g/dL (12.0-16.0); LYMPHOCYTES # (AUTO) 1.5 10^3/uL (1.5-3.5); LYMPHOCYTES % (AUTO) 28.4 %; MEAN CORPUSCULAR HEMOGLOBIN 27.6 pg (27.0-31.0); MEAN CORPUSCULAR HGB CONC 32.2 g/dL (32.0-36.0); MEAN CORPUSCULAR VOLUME 85.9 fL (81.0-99.0); MEAN PLATELET VOLUME 9.6 fL (7.9-10.8); MONOCYTES # (AUTO) 0.3 10^3/uL (0.0-1.0); MONOCYTES % (AUTO) 6.3 %; NEUTROPHILS # (AUTO) 3.4 10^3/uL (1.5-6.6); NEUTROPHILS % (AUTO) 63.1 %; PLT - PLATELET COUNT 200 10^3/uL (130-450); RED BLOOD COUNT 4.74 10^6/uL (4.20-5.40); RED CELL DISTRIBUTION WIDTH 15.3 % (12.0-15.0); WHITE BLOOD COUNT 5.4 x10^3/uL (4.8-10.8)
[2019-12-17 12:57] LABS: BILIRUBIN,URINE NEGATIVE (NEGATIVE); GLUCOSE, URINE (UA) NEGATIVE (NEGATIVE); KETONES,URINE (UA) NEGATIVE (NEGATIVE); LEUKOCYTE ESTERASE, URINE NEGATIVE (NEGATIVE); NITRITE,URINE NEGATIVE (NEGATIVE); OCCULT BLOOD,URINE SMALL (NEGATIVE); PROTEIN,URINE NEGATIVE (NEGATIVE); UROBILINOGEN,URINE 0.2 (NORMAL) E.U./dL (NORMAL)
[2019-12-17 12:59] LABS: CLARITY,URINE HAZY (CLEAR)
[2019-12-17 13:00] LABS: HCG UR QUAL NEGATIVE
[2019-12-17 13:10] LABS: ALBUMIN 4.7 g/dL (3.2-5.5); ALBUMIN/GLOBULIN RATIO 1.7 (1.0-2.2); BILIRUBIN,TOTAL 0.6 mg/dL (0.2-1.0); CALCIUM 9.3 mg/dL (8.5-10.3); CREATININE 1.3 mg/dL (0.4-1.0); TOTAL PROTEIN 7.4 g/dL (6.7-8.2)
[2019-12-17 13:11] LABS: BACTERIA,URINE Many /HPF (None Seen); SQUAMOUS EPITHELIAL CELL,UR MANY Squamous (<= Few)
--- NOTE | 2019-12-17 13:12 | ED Physician Documentation ---
PD HPI ABD PAIN - Stated complaint Stated Complaint: RT FLANK PX - Chief complaint Chief Complaint: Abd Pain - History obtained from History obtained from: Patient (34-year-old female comes in today with chief complaint of right-sided flank pain, with radiation is going around to the right lateral abdomen down to the right lower quadrant of her abdomen. Ongoing since this morning when she woke up. Pain is constant had 8-9 out of 10 with intermittent colicky spikes in the pain. Patient is taken ibuprofen this morning with little to no relief. She does admit to have any past medical history of having kidney stones on the right side that were discovered via an MRI, nothing was done at that time but the stones that were too small to worry about she was told. She denies any naina blood In her urine. She is breast- feeding 6-week old infant.) Review of Systems Constitutional: denies: Fever, Chills, Fatigue Eyes: reports: Reviewed and negative Ears: reports: Reviewed and negative Nose: reports: Reviewed and negative Cardiac: reports: Reviewed and negative Respiratory: reports: Reviewed and negative GI: reports: Abdominal Pain, Nausea. denies: Vomiting, Diarrhea : reports: Other (decreased amount of UO patient relates to not drinking much today.). 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 - Present Medications Home Medications: Ambulatory Orders Medication Instructions Recorded Confirmed Pnv No.95/Ferrous Fum/Folic AC 1 tab PO DAILY 10/20/18 03/25/19 [ Tablet] Metoclopramide [Reglan] 10 mg PO Q6H PRN #10 tablet 03/13/19 03/25/19 Ondansetron HCl [Zofran] 4 mg PO Q6H PRN 03/25/19 03/25/19 Ibuprofen 800 mg PO TID #30 tablet 12/17/19 oxyCODONE/ACET 5/325 [Percocet 5 1 each PO Q4-6H #10 tablet 12/17/19 mg/325 mg] - Allergies Allergies/Adverse Reactions: Allergies Allergy/AdvReac Type Severity Reaction Status Date / Time clindamycin Allergy Unknown Verified 12/17/19 12:18 latex Allergy Unknown Verified 12/17/19 12:18 adhesive tape AdvReac Rash Verified 12/17/19 12:18 - Social History Does the pt smoke?: No Smoking Status: Never smoker Does the pt drink ETOH?: No Does the pt have substance abuse?: No - Immunizations Immunizations are current?: Yes - POLST Patient has POLST: No PD ED PE NORMAL - General General: Alert and oriented X 3, Well developed/nourished - HEENT HEENT: Atraumatic, PERRL, EOMI, Moist mucous membranes - Neck Neck: Supple, no meningeal sign, No adenopathy - Cardiac Cardiac: RRR, No murmur - Respiratory Respiratory: No respiratory distress, Clear bilaterally - Abdomen Abdomen: Normal bowel sounds, Soft, Non tender, Non distended - Back Back: Other (TTP right side CVA.) - Derm Derm: Normal color, Warm and dry, No rash - Extremities Extremities: No edema - Neuro Neuro: Alert and oriented X 3 Results - Vitals Vitals: Vital Signs - 24 hr 12/17/19 12/17/19 12:18 14:52 Temperature 36.5 C 37.1 C Heart Rate 86 75 Respiratory 16 16 Rate Blood Pressure 150/86 H 112/68 O2 Saturation 100 100 Oxygen O2 Source Room air - Labs Labs: Laboratory Tests 12/17/19 12/17/19 12/17/19 12:45 12:45 12:45 WBC 5.4 RBC 4.74 Hgb 13.1 Hct 40.7 MCV 85.9 MCH 27.6 MCHC 32.2 RDW 15.3 H Plt Count 200 MPV 9.6 Neut # (Auto) 3.4 Lymph # (Auto) 1.5 [place] # (Auto) 0.3 Eos # (Auto) 0.1 Baso # (Auto) 0.0 Absolute Nucleated RBC 0.00 Nucleated RBC % 0.0 Sodium 137 Potassium 3.7 Chloride 105 Carbon Dioxide 22 Anion Gap 10.0 BUN 11 Creatinine 1.3 H Estimated GFR (MDRD) 47 L Glucose 95 Calcium 9.3 Total Bilirubin 0.6 AST 21 ALT 20 Alkaline Phosphatase 69 Total Protein 7.4 Albumin 4.7 Globulin 2.7 Albumin/Globulin Ratio 1.7 Lipase 52 H Urine Color YELLOW Urine Clarity HAZY Urine pH 7.0 Ur Specific [place] 1.025 Urine Protein NEGATIVE Urine Glucose (UA) NEGATIVE Urine Ketones NEGATIVE Urine Occult Blood SMALL H Urine Nitrite NEGATIVE Urine Bilirubin NEGATIVE Urine Urobilinogen 0.2 (NORMAL) Ur Leukocyte Esterase NEGATIVE Urine RBC 11-25 H Urine WBC 6-10 H Ur Squamous Epith Cells MANY Squamous H Urine Bacteria Many H Ur Microscopic Review INDICATED Urine Culture Comments NOT INDICATED Urine HCG, Qual 12/17/19 12:45 WBC RBC Hgb Hct MCV MCH MCHC RDW Plt Count MPV Neut # (Auto) Lymph # (Auto) [place] # (Auto) Eos # (Auto) Baso # (Auto) Absolute Nucleated RBC Nucleated RBC % Sodium Potassium Chloride Carbon Dioxide Anion Gap BUN Creatinine Estimated GFR (MDRD) Glucose Calcium Total Bilirubin AST ALT Alkaline Phosphatase Total Protein Albumin Globulin Albumin/Globulin Ratio Lipase Urine Color Urine Clarity Urine pH Ur Specific [place] 1.025 Urine Protein Urine Glucose (UA) Urine Ketones Urine Occult Blood Urine Nitrite Urine Bilirubin Urine Urobilinogen Ur Leukocyte Esterase Urine RBC Urine WBC Ur Squamous Epith Cells Urine Bacteria Ur Microscopic Review Urine Culture Comments Urine HCG, Qual NEGATIVE - Rads (name of study) No standard instances Radiology: Final report received (moderate right-sided hydronephrosis and hydroureter secondary to a 6 mm calculus at the right UVJ. ) PD MEDICAL DECISION MAKING - ED course Complexity details: reviewed results, re-evaluated patient (pt is feeling much better after receiving 1 mg Dilauded IV. she states that she feels the stone is sitting in her urethra now. She was given two liters of NS and she urinated multiple times but is unable to pass the stone. ), d/w patient (The pt did not want any medications as she is brestfeeding, but she is willing to take ibuprofen at home along with drinking more clear fluids. ) Departure - Departure Disposition: 01 Home, Self Care Clinical Impression: Kidney calculus Condition: Fair Instructions: ED Strainer Urine, ED Stone Renal W Colic Prescriptions: Ibuprofen 800 mg PO TID #30 tablet oxyCODONE/ACET 5/325 [Percocet 5 mg/325 mg] 1 each PO Q4-6H #10 tablet Comments: You have a 6 mm stone in your right ureter, just before your bladder. As I discussed with you pain management is lamas. You can continue to take Ibuprofen at home for pain control, I have given you a prescription for this, as well as a prescription for Percocet. Use the ibuprofen 3 times a day as prescribed, saving the Percocet for more severe pain.. You should continue drinking Clear fluids, Gatorade is fine as well. Follow-up with your primary care provider in 1 week if your stone does not pass. Strain your urine until the stone does pass. You may return to the ER anytime should the pain not be controlled by medication,.
[2019-12-17] MEDS ORDERED: LIDOCAINE-MPF 2% 0 ML in SODIUM CHLORIDE 0.9% 50 ML IV STA (13:22)
[2019-12-17] MEDS ORDERED: SODIUM CHLORIDE 0.9% 1,000 ML IV ONE ×2 (13:23→14:43)
[2019-12-17] MEDS ORDERED: LIDOCAINE-MPF 2% 5 ML in SODIUM CHLORIDE 0.9% 50 ML IV STA (13:31)
--- NOTE | 2019-12-17 13:35 | CT Report ---
Reason: possible kidney stone, right side. Procedure Date: 12/17/2019 Accession Number: [id number] / [id number] Procedure: CT - Abdomen/Pelvis WO CPT Code: Final Report FULL RESULT: EXAM: CT ABDOMEN AND PELVIS (CT KUB) EXAM DATE: 12/17/2019 01:16 PM. CLINICAL HISTORY: Possible kidney stone, right side. COMPARISONS: None. TECHNIQUE: Routine axial helical CT imaging was performed through the abdomen and pelvis without IV contrast. Reconstructions: Coronal and sagittal. In accordance with CT protocol optimization, one or more of the following dose reduction techniques were utilized for this exam: automated exposure control, adjustment of mA and/or KV based on patient size, or use of iterative reconstructive technique. FINDINGS: Lung Bases: Unremarkable. Right Kidney/Ureter: There is moderate right-sided hydronephrosis and hydroureter extending caudally to a 6 mm calculus located just proximal to the right UVJ, series 3 image 100. There is a nonobstructing 1 mm nephrolith in the anterior midpole of the right kidney. Left Kidney/Ureter: No hydronephrosis. There is a 1 mm calculus in the lower pole of the left kidney. No ureteral dilatation or left ureteral stones. Other Solid Organs: Noncontrast images of the solid organs are grossly unremarkable. Gallbladder/Bile Ducts: Unremarkable. Peritoneal Cavity: No free fluid, free air or naina adenopathy. Bowel is grossly unremarkable. Pelvic Organs: No bladder stones or wall thickening. Noncontrast images of the visualized pelvic organs are unremarkable. Vasculature: Unremarkable. Other: None. IMPRESSION: Moderate right-sided hydronephrosis and hydroureter secondary to a 6 mm calculus at the right UVJ. RADIA
[2019-12-17] MEDS ORDERED: HYDROmorphone 1 MG/ML CARPUJECT IVP STA (14:33)
[2019-12-17 16:11] VITALS: BP 110/71
== END 2019-12-17 16:28 | disposition home or self-care (01) ==
LOC: ED 12:14
DX: O90.89 Other complications of the puerperium, not elsewhere classified (principal); N13.2 Hydronephrosis with renal and ureteral calculous obstruction; Z87.442 Personal history of urinary calculi
CPT/HCPCS: 36415; 74176; 80053; 81001; 81025; 83690; 85025; 96361; 96374; 96375; 99284; J1170; J2765; J7040; 81003; 87086

== ENCOUNTER 2019-12-27 16:24 | Outpatient (CLI) | payer MEDICAID ==
--- NOTE | 2019-12-28 01:08 | Ultrasound Report ---
Reason: UTERINE FIBROIDS Procedure Date: 12/27/2019 Accession Number: [id number] / [id number] Procedure: US - Pelvic w/Transvaginal CPT Code: Final Report FULL RESULT: EXAM: PELVIC ULTRASOUND EXAM DATE: 12/27/2019 05:09 PM. CLINICAL HISTORY: UTERINE FIBROIDS. COMPARISON: ABDOMEN/PELVIS W/O 12/17/2019 1:09 PM. TECHNIQUE: Realtime transabdominal pelvic scan performed to identify the uterus and adnexa and as an overview of other pelvic structures, followed by transvaginal scan to provide greater detail of the uterus and adnexa, with static image documentation. FINDINGS: Uterus: 10.0 x 5.2 x 9.0 cm, volume 245 cc. Anteverted position. Normal overall size and echotexture. Masses: None. Endometrium: 9 mm. Mildly heterogeneous with mobile echoes noted in endometrium. Cervix: No significant cysts. Otherwise unremarkable. Right Ovary: 3.2 x 1.8 x 2.2 cm, volume 6.7 cc. Involuting hemorrhagic cyst 1.2 x 1.1 x 1.0 cm. No evidence of torsion. Left Ovary: 3.5 x 2.2 x 1.9 cm, volume 7.6 cc. Normal echotexture and blood flow. Free Fluid: None. Other: None. IMPRESSION: 1. Mildly prominent uterine size without uterine fibroids. 2. Involuting hemorrhagic cyst in right ovary measuring 1.2 cm. RADIA
== END 2019-12-27 16:25 | disposition home or self-care (01) ==
LOC: DI 16:24
PROVIDERS: ATTEND Obstetrics & Gynecology
DX: N83.201 Unspecified ovarian cyst, right side (principal)
CPT/HCPCS: 76830; 76856

== ENCOUNTER 2019-12-31 15:15 | Outpatient (CLI) | payer MEDICAID ==
--- NOTE | 2020-01-01 11:29 | Ultrasound Report ---
Reason: RENAL COLIC ON RT SIDE Procedure Date: 12/31/2019 Accession Number: [id number] / [id number] Procedure: US - Retroperitoneal CPT Code: Final Report FULL RESULT: EXAM: RENAL ULTRASOUND EXAM DATE: 12/31/2019 04:06 PM. CLINICAL HISTORY: Right renal colic. COMPARISON: ABDOMEN/PELVIS W/O 12/17/2019 1:09 PM. TECHNIQUE: Real-time scanning was performed with static images obtained. FINDINGS: Right Kidney: 10.8 x 11.4 x 5.2 cm. Right hydronephrosis seen on prior CT appears resolved. A mid to lower pole intrarenal stone measures 4 mm, similar to prior CT. No solid masses evident. Left Kidney: 10.9 x 5.0 x 6.7 cm. No hydronephrosis evident. A left lower pole nonobstructive stone measures 5 mm, previously [address] No solid masses evident. Bladder: Patient unable to fill bladder during this exam. Bladder volume measured less than 10 cc. No wall thickening, mass or calculi identified. Ureteral jets were not visualized. Other: None. IMPRESSION: 1.4 mm right and 3 mm left nonobstructing intrarenal stones similar to prior CT. 2. No hydronephrosis currently identified bilaterally. Right hydronephrosis appears resolved. RADIA
== END 2019-12-31 15:16 | disposition home or self-care (01) ==
LOC: DI 15:15
PROVIDERS: ATTEND Urology
DX: N20.0 Calculus of kidney (principal)
CPT/HCPCS: 76770

== ENCOUNTER 2020-02-06 14:05 | Outpatient (CLI) | payer MEDICAID | END 2020-02-06 23:59 | disposition home or self-care (01) | LOC: LAB.R 14:05 | PROVIDERS: ATTEND Nurse Practitioner Family | DX: N39.0 Urinary tract infection, site not specified (principal) | CPT/HCPCS: 87077; 87086; 87181 ==

== ENCOUNTER 2020-02-06 14:23 | Outpatient (CLI) | payer MEDICAID | END 2020-02-06 23:59 | disposition home or self-care (01) | LOC: LAB.R 14:23 | PROVIDERS: ATTEND Nurse Practitioner Family | DX: N39.0 Urinary tract infection, site not specified (principal); Z53.9 Procedure and treatment not carried out, unspecified reason | CPT/HCPCS: 87086 ==

== ENCOUNTER 2020-04-21 07:00 | Outpatient (CLI) | payer MEDICAID ==
[2020-04-21 18:58] LABS: CANDIDA GROUP DNA POSITIVE (NEGATIVE); CANDIDA KRUSEI DNA NEGATIVE (NEGATIVE); TRICHOMONAS VAGINALIS DNA NEGATIVE (NEGATIVE)
== END 2020-04-21 07:01 | disposition home or self-care (01) ==
LOC: LAB.R 07:00
PROVIDERS: ATTEND Advanced Practice Midwife
DX: N89.8 Other specified noninflammatory disorders of vagina (principal)
CPT/HCPCS: 87661; 87801

== ENCOUNTER 2020-09-29 08:00 | Outpatient (CLI) | payer MEDICAID ==
[2020-09-30 20:40] LABS: CANDIDA GROUP DNA POSITIVE (NEGATIVE); CANDIDA KRUSEI DNA NEGATIVE (NEGATIVE); TRICHOMONAS VAGINALIS DNA NEGATIVE (NEGATIVE)
== END 2020-09-29 23:59 | disposition home or self-care (01) ==
LOC: LAB.R 08:00
PROVIDERS: ATTEND Nurse Practitioner Obstetrics & Gynecology
DX: N89.8 Other specified noninflammatory disorders of vagina (principal)
CPT/HCPCS: 87661; 87801

== ENCOUNTER 2020-11-22 07:00 | Outpatient (CLI) | payer MEDICAID ==
[2020-11-22 21:18] LABS: BACTERIAL VAGINOSIS DNA NEGATIVE (NEGATIVE); CANDIDA GLABRATA DNA NEGATIVE (NEGATIVE); CANDIDA GROUP DNA POSITIVE (NEGATIVE); CANDIDA KRUSEI DNA NEGATIVE (NEGATIVE); TRICHOMONAS VAGINALIS DNA NEGATIVE (NEGATIVE)
== END 2020-11-22 23:59 | disposition home or self-care (01) ==
LOC: LAB.R 07:00
PROVIDERS: ATTEND Obstetrics & Gynecology
DX: L29.8 Other pruritus (principal)
CPT/HCPCS: 87661; 87801

== ENCOUNTER 2021-03-01 08:00 | Outpatient (CLI) | payer MEDICAID ==
[2021-03-02 21:58] LABS: BACTERIAL VAGINOSIS DNA NEGATIVE (NEGATIVE); CANDIDA GLABRATA DNA NEGATIVE (NEGATIVE); CANDIDA GROUP DNA POSITIVE (NEGATIVE); CANDIDA KRUSEI DNA NEGATIVE (NEGATIVE); TRICHOMONAS VAGINALIS DNA NEGATIVE (NEGATIVE)
== END 2021-03-01 23:59 | disposition home or self-care (01) ==
LOC: LAB.R 08:00
PROVIDERS: ATTEND Advanced Practice Midwife
DX: L29.8 Other pruritus (principal)
CPT/HCPCS: 87661; 87801

== ENCOUNTER 2021-10-10 11:30 | Outpatient (CLI) | payer MEDICAID ==
[2021-10-10 12:27] LABS: ESTIMATED AVERAGE GLUCOSE 105 mg/dL (70-100); HEMOGLOBIN A1c% 5.3 % (4.27-6.07)
[2021-10-10 12:29] LABS: THYROID STIMULATING HORMONE 1.46 uIU/mL (0.34-5.60)
[2021-10-10 12:31] LABS: FREE T4 (FREE THYROXINE) 0.97 ng/dL (0.58-1.64)
== END 2021-10-10 11:31 | disposition home or self-care (01) ==
LOC: LAB 11:30
PROVIDERS: ATTEND Nurse Practitioner Obstetrics & Gynecology
DX: Z00.00 Encounter for general adult medical examination without abnormal findings (principal); R63.5 Abnormal weight gain
CPT/HCPCS: 36415; 80061; 81599; 83036; 83704; 84439; 84443

== ENCOUNTER 2022-09-26 11:29 | Outpatient (CLI) | payer MEDICAID ==
[2022-09-26 13:12] LABS: BILIRUBIN,URINE NEGATIVE (NEGATIVE); GLUCOSE, URINE (UA) NEGATIVE (NEGATIVE); KETONES,URINE (UA) NEGATIVE (NEGATIVE); LEUKOCYTE ESTERASE, URINE NEGATIVE (NEGATIVE); NITRITE,URINE NEGATIVE (NEGATIVE); OCCULT BLOOD,URINE NEGATIVE (NEGATIVE); PROTEIN,URINE NEGATIVE (NEGATIVE); UROBILINOGEN,URINE 0.2 (NORMAL) E.U./dL (NORMAL)
[2022-09-26 13:24] LABS: BACTERIA,URINE Few /HPF (None Seen); CLARITY,URINE CLEAR (CLEAR); RBC,URINE 0-5 /HPF (0-5); SQUAMOUS EPITHELIAL CELL,UR FEW Squamous (<= Few); WBC,URINE 0-3 /HPF (0-5)
== END 2022-09-26 11:30 | disposition home or self-care (01) ==
LOC: LAB 11:29
PROVIDERS: ATTEND Family Medicine
DX: N39.0 Urinary tract infection, site not specified (principal)
CPT/HCPCS: 81001; 87086; 87181

== ENCOUNTER 2022-09-29 14:28 | Emergency (ER) | payer MEDICAID ==
[2022-09-29 14:33] VITALS: BP 141/89
[2022-09-29] MEDS ORDERED: cephALEXin 250 MG CAPSULE PO STA (14:46)
--- NOTE | 2022-09-29 14:48 | ED Physician Documentation ---
History of Present Illness - Stated complaint Stated Complaint: UTI - Chief complaint Chief Complaint: UTI - Additonal information Additional information: 37-year-old female checks into the emergency department requesting antibiotics for an E. coli urinary tract infection. She has been having urinary urgency frequency and burning now for about 5 days. She did have a telehealth visit Completed on the . Reportedly urinalysis was not consistent with infection but subsequent culture has grown E. coli 50-100 K CFU. The patient was able to review her microbiology report online today and attempted to get in contact with her primary care office though they were closed. She checks in requesting antibiotics. 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 She continues to endorse burning urgency and frequency though no fevers abdominal pain or vomiting. 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 - Present Medications Home Medications: Ambulatory Orders Medication Instructions Recorded Confirmed Pnv No.95/Ferrous Fum/Folic AC 1 tab PO DAILY 10/20/18 03/25/19 [ Tablet] Metoclopramide [Reglan] 10 mg PO Q6H PRN #10 tablet 03/13/19 03/25/19 ondansetron HCL [Zofran] 4 mg PO Q6H PRN 03/25/19 03/25/19 Ibuprofen 800 mg PO TID #30 tablet 12/17/19 oxyCODONE/ACET 5/325 [Percocet 5 1 each PO Q4-6H #10 tablet 12/17/19 mg/325 mg] cephALEXin [Keflex] 500 mg PO BID #14 cap 09/29/22 - Allergies Allergies/Adverse Reactions: Allergies Allergy/AdvReac Type Severity Reaction Status Date / Time clindamycin Allergy Unknown Verified 09/29/22 14:33 latex Allergy Unknown Verified 09/29/22 14:33 adhesive tape AdvReac Rash Verified 09/29/22 14:33 - Social History Does the pt smoke?: No Smoking Status: Never smoker Does the pt drink ETOH?: No Does the pt have substance abuse?: No - Immunizations Immunizations are current?: Yes - POLST Patient has POLST: No PD ED PE NORMAL - General General: Alert and oriented X 3, No acute distress - HEENT HEENT: PERRL - Neck Neck: Supple, no meningeal sign, No adenopathy - Cardiac Cardiac: RRR, No murmur - Respiratory Respiratory: No respiratory distress, Clear bilaterally - Abdomen Abdomen: Normal bowel sounds - Derm Derm: Normal color, Warm and dry - Extremities Extremities: No deformity - Neuro Neuro: Alert and oriented X 3, hot car operator 2-12 intact Eye Opening: Spontaneous Motor: Obeys Commands Verbal: Oriented GCS Score: 15 Results - Vitals Vitals: Vital Signs - 24 hr 09/29/22 14:31 Temperature 37 C Heart Rate 88 Respiratory 14 Rate Blood Pressure 141/89 H O2 Saturation 96 Oxygen O2 Source Room air PD Medical Decision Making - ED course Complexity details: considered differential, d/w patient ED course: 37-year-old female presents emergency department with 5 to 6 days of burning urgency and urinary frequency. Though urinalysis was reportedly negative on the subsequent culture has grown 50-100 K CFU of E. coli. Given the persistence of symptoms it is reasonable to consider treatment at this time. I have deferred to Keflex as the patient's preferred antibiotic as she is very concerned about C. difficile associated antibiotics and has tolerated this well in the past. The E. coli was pansensitive and I believe this cephalosporin will be adequate. Clinically the patient has no signs to suggest a sending infection or pyelonephritis Patient is advised close follow-up with her PCP. Worrisome and emergent return precautions otherwise discussed. Departure - Departure Disposition: 01 Home, Self Care Clinical Impression: E. coli UTI (urinary tract infection) Condition: Stable Record reviewed to determine appropriate education?: Yes Instructions: ED UTI Cystitis Female Follow-Up: MARGARETTE FENG ARNP [Primary Care Provider] - Prescriptions: cephALEXin [Keflex] 500 mg PO BID #14 cap Comments: You checked into the emergency department today because you noted that your urine culture obtained on the has grown E. coli. Your urinary symptoms have not improved. In order to help manage this we will start you on Keflex. You will take this twice daily for the next week. Your initial dose of medication has been given here in the emergency department and the prescription was then sent to [facility]. Because of your history of C. difficile colitis associated with antibiotic use I do recommend that you take some lactobacillus or some yogurt each day while on the antibiotic to help avoid some diarrhea. If at any point however you have concerns that are similar to previous C. difficile you should return immediately to the ER. Return sooner if you have fevers, develop any flank pain or vomiting or find that your urinary symptoms are not improving with the antibiotic.
== END 2022-09-29 14:58 | disposition home or self-care (01) ==
LOC: ED 14:28
DX: N39.0 Urinary tract infection, site not specified (principal); B96.20 Unspecified Escherichia coli [E. coli] as the cause of diseases classified elsewhere
CPT/HCPCS: 99282; 99284; A9270

== ENCOUNTER 2022-10-14 22:14 | Emergency (ER) | payer MEDICAID ==
[2022-10-14 22:35] LABS: BILIRUBIN,URINE NEGATIVE (NEGATIVE); GLUCOSE, URINE (UA) NEGATIVE (NEGATIVE); KETONES,URINE (UA) NEGATIVE (NEGATIVE); LEUKOCYTE ESTERASE, URINE TRACE (NEGATIVE); NITRITE,URINE NEGATIVE (NEGATIVE); OCCULT BLOOD,URINE NEGATIVE (NEGATIVE); PH,URINE 6.5 PH (5.0-7.5); PROTEIN,URINE NEGATIVE (NEGATIVE); UROBILINOGEN,URINE 0.2 (NORMAL) E.U./dL (NORMAL)
[2022-10-14 22:43] LABS: CLARITY,URINE CLEAR (CLEAR); HCG UR QUAL NEGATIVE
[2022-10-14 22:46] LABS: BACTERIA,URINE Few /HPF (None Seen); RBC,URINE 0-5 /HPF (0-5); SQUAMOUS EPITHELIAL CELL,UR RARE Squamous (<= Few)
--- NOTE | 2022-10-15 | ED Physician Documentation ---
PD HPI FEMALE - Stated complaint Stated Complaint: FEMALE - Chief complaint Chief Complaint: UTI - History obtained from History obtained from: Patient - Additional information Additional information: HPI from patient. Patient recently treated for UTI with one week of keflex, started 09/29. She says the symptoms improved although she feels they didn't entirely resolved, and symptoms rapidly worsening since earlier today. Her symptoms are urinary frequency, burning dysuria, and suprapubic pressure. 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 - Present Medications Home Medications: Ambulatory Orders Medication Instructions Recorded Confirmed LORazepam [Ativan] 0.5 mg PO Q6H PRN 10/14/22 10/14/22 Nitrofurantoin [Macrobid] 100 mg PO BID #13 cap 10/15/22 Phenazopyridine HCl [Pyridium] 200 mg PO TID PRN #6 tablet 10/15/22 - Allergies Allergies/Adverse Reactions: Allergies Allergy/AdvReac Type Severity Reaction Status Date / Time clindamycin Allergy Unknown Verified 10/14/22 22:21 latex Allergy Unknown Verified 10/14/22 22:21 adhesive tape AdvReac Rash Verified 10/14/22 22:21 - Social History Does the pt smoke?: No Smoking Status: Never smoker Does the pt drink ETOH?: No Does the pt have substance abuse?: No - Immunizations Immunizations are current?: Yes - POLST Patient has POLST: No PD ED PE NORMAL - Vitals Vital signs reviewed: Yes - General General: Alert and oriented X 3, No acute distress, Well developed/nourished - Abdomen Abdomen: Soft, Non tender - Back Back: No CVA TTP Results - Vitals Vitals: Oxygen O2 Source Room air - Labs Labs: Microbiology 10/14/22 22:25 Urine Culture - Preliminary Urine,Clean Catch Escherichia Coli Laboratory Tests 10/14/22 22:25 Urine Color YELLOW Urine Clarity CLEAR Urine pH 6.5 Ur Specific [place] 1.020 Urine Protein NEGATIVE Urine Glucose (UA) NEGATIVE Urine Ketones NEGATIVE Urine Occult Blood NEGATIVE Urine Nitrite NEGATIVE Urine Bilirubin NEGATIVE Urine Urobilinogen 0.2 (NORMAL) Ur Leukocyte Esterase TRACE H Urine RBC 0-5 Urine WBC 11-25 H Ur Squamous Epith Cells RARE Squamous Urine Bacteria Few Ur Microscopic Review INDICATED Urine Culture Comments INDICATED Urine HCG, Qual NEGATIVE PD Medical Decision Making - ED course Complexity details: considered differential, d/w patient ED course: Reviewed results of previous urine culture. The urinalysis was obtained 09/26/22, and patient says she was not treated based on the initial result but rather on the ensuing culture result. The culture (in [facility] records) returned 09/28/22 and was positive for 50k-100k/hpf mendoza-sensitive e. coli. Patient was prescribed keflex. Damon's urinalysis is consistent with UTI and thus she is given macrobid in ED and rx for same. She is also given pyridium in ED and rx. Departure - Departure Disposition: 01 Home, Self Care Clinical Impression: UTI (urinary tract infection) Condition: Good Instructions: ED UTI Cystitis Female Prescriptions: Nitrofurantoin [Macrobid] 100 mg PO BID #13 cap Phenazopyridine HCl [Pyridium] 200 mg PO TID PRN #6 tablet PRN Reason: dysuria Comments: The results of damon's urinalysis are consistent with a urinary tract infection. You are given the first dose of an antibiotic (Macrobid) in the emergency department, as well as a dose of Pyridium (medication that can help with the frequency and burning discomfort associated with urinary tract infections). Prescriptions for both of these medications have been electronically submitted to the [facility] pharmacy in [place]. Discharge Date/Time: 10/15/22 00:30
[2022-10-15] MEDS ORDERED: NITROFURANTOIN MACRO 100 MG CAPSULE PO STA (00:20)
[2022-10-15] MEDS ORDERED: PHENAZOPYRIDINE 100 MG TABLET PO STA (00:21)
[2022-10-15 00:34] VITALS: BP 148/65
== END 2022-10-15 00:30 | disposition home or self-care (01) ==
LOC: ED 22:14
DX: N39.0 Urinary tract infection, site not specified (principal)
CPT/HCPCS: 81001; 81025; 87086; 87181; 99283; A9270; 81003

== ENCOUNTER 2023-05-28 12:40 | Outpatient (CLI) | payer MEDICAID ==
--- NOTE | 2023-05-28 16:15 | MRI Report ---
PROCEDURE: LUMBAR SPINE WO INDICATIONS: LEFT LUMBAGO WITH SCIATICA TECHNIQUE: Multiplanar multisequential MRI images of the lumbar spine were obtained without intraven ous contrast. COMPARISON: None. FINDINGS: Alignment and Curvature: There is normal bony alignment. Bone Marrow: Marrow is of normal overall signal. No acute vertebral body compression fractures. No sacral fractures. Spinal Cord: Conus medullaris terminates at the L1 level. Visualized cord demonstrates normal signa l and size. Paraspinal Soft Tissues: Unremarkable perivertebral soft tissues. T12-L1: Normal in appearance. L1-L2: Normal in appearance. L2-L3: Normal in appearance. L3-L4: Normal in appearance. L4-L5: Disc height is maintained. Circumferential disc bulge present with mild central stenosis jerardo ear no foraminal stenosis. L5-S1: Disc space narrowing with posterior disc bulge. High intensity zone in the posterior annulus reflects annular fissure or tear. No central stenosis. No foraminal stenosis. IMPRESSION: Mild degenerative disc disease without significant central or foraminal stenosis Reviewed by: Cody Chu MD on 05/28/2023 3:13 PM AKDT Approved by: Cody Chu MD on 05/28/2023 3:13 PM AKDT Station ID: [id number]
== END 2023-05-28 12:41 | disposition home or self-care (01) ==
LOC: DI 12:40
PROVIDERS: ATTEND Nurse Practitioner Family
DX: M51.16 Intervertebral disc disorders with radiculopathy, lumbar region (principal); M51.17 Intervertebral disc disorders with radiculopathy, lumbosacral region